=== PATIENT | male | born 1960 | race Caucasian/White ===

== ENCOUNTER 2022-09-07 17:13 | Observation (INO) ==
[2022-09-07] MEDS ORDERED: SODIUM CHLORIDE 0.9% 1000ML 1,000 ML IV SCH (17:45)
[2022-09-07 17:59] LABS: Basophils # (auto) 0.03 K/uL (0-0.2); Basophils % (auto) 0.4 %; Eosinophils # (auto) 0.01 K/uL (0-0.50); Eosinophils % (auto) 0.1 %; Hematocrit (blood only) 40.8 % (42.0-52.0); Hemoglobin 14.4 g/dl (14.0-18.0); Immature Granulocytes # (auto) 0.02 K/uL (0.01-0.20); Immature Granulocytes % (auto) 0.2 %; Lymphocytes # (auto) 0.72 K/uL (1.2-3.4); Lymphocytes % (auto) 8.7 %; Mean Corpuscular Hemoglobin 31.8 pg (25.0-34.0); Mean Corpuscular Hgb Conc 35.3 g/dL (32.0-36.0); Mean Corpuscular Volume 90.1 fL (80.0-100.0); Monocytes # (auto) 0.72 K/uL (0.11-0.59); Monocytes % (auto) 8.7 %; Neutrophils # (auto) 6.78 K/uL (1.40-6.50); Neutrophils % (auto) 81.9 %; Platelet Count 218 K/uL (130-400); RDW Coefficient of Variation 12.7 % (11.5-14.5); RDW Standard Deviation 42.3 fL (36.4-46.3); Red Blood Count 4.53 M/uL (4.70-6.10); White Blood Count 8.28 K/ul (4.8-10.8)
[2022-09-07 18:15] LABS: Albumin Globulin Ratio 1.5 (0.9-2); Albumin Level 4.4 gm/dl (3.4-5.0); BUN Creatinine Ratio 18.7 (10-20); Bilirubin,Total 0.7 mg/dl (0.2-1.0); Calcium 9.3 mg/dl (8.6-10.3); Creatinine Clr Calc Pharmacy 96.3 ml/min; Est GFR (African American) 115.6 ml/min; Est GFR (Non-African American) 99.7 ml/min; Globulin 2.9 gm/dl (2.5-4.0); Magnesium 1.8 mg/dl (1.7-2.4); Potassium 3.5 mmol/L (3.5-5.1); Total Protein 7.3 gm/dl (6.0-8.3)
[2022-09-07 18:17] LABS: Appearance Urine Clear (Clear); Bacteria Urine Automated Negative (Negative); Bilirubin Urine Negative (Negative); Blood Urine Trace (Negative); Color Urine Yellow; Glucose Urine UA Negative (Negative); Ketones Urine 1+ (Negative); Leukocyte Esterase Urine Negative (Negative); Nitrite Urine Negative (Negative); Protein Urine 1+ (Negative); RBC Urine Automated 0-4 /hpf (0-4); Specific Gravity Urine 1.022 (1.000-1.030); Urobilinogen Urine Negative (Negative); pH Urine 5.5 (4.5-7.5)
--- NOTE | 2022-09-07 18:20 | CT Scan Report ---
CT head/brain wo con CLINICAL HISTORY: head injury, seizure Technique: Contiguous axial CT images of the head were acquired from the base of the skull to the derian rodger without intravenous contrast administration. Images were viewed in brain, subdural and bone [facility] ws. Automated dose lowering techniques and/or adjustment according to patient size were utilized for this exam. Comparison: None available at the time of this dictation. Findings: The ventricles, basal cisterns, and cerebral sulci are normal. There is no acute intracranial hemorrh age or evidence of acute territorial infarction. Neither mass effect, shift of the midline structures , nor abnormal extra-axial fluid collections are shown. Imaged portions of the paranasal sinuses and mastoid air cells are clear. The orbits appear normal. There are no acute fractures of the calvaria or scalp swelling. Impression: No acute intracranial hemorrhage, no evidence of acute territorial infarction or other acute intracra nial disease process. ACT 112: Negative or not required by law. Electronically signed by: Raza Haskins M.D. 09/07/2022 6:19 PM
--- NOTE | 2022-09-07 18:32 | CT Scan Report ---
CT cervical spine wo con CLINICAL HISTORY: head injury, seizure TECHNIQUE: Multidetector row helical CT of the cervical spine was performed without administration of intravenous contrast. Coronal and sagittal reformations were obtained. Automated dose lowering techn iques and/or adjustment according to patient size were utilized for this exam. Comparison: None available at the time of this dictation. FINDINGS: No acute fractures or subluxations are identified. Degenerative changes are seen in the visualized sp ine. The alignment is normal. Soft tissues are unremarkable. IMPRESSION: No evidence of acute bony injury. ACT 112: Negative or not required by law. Electronically signed by: Raza Haskins M.D. 09/07/2022 6:30 PM
--- NOTE | 2022-09-07 19:00 | Emergency Department Note ---
ED Provider Note History of Present Illness Chief Complaint: Seizure Stated Complaint: POSSIBLE SEIZURE, ABRASION SCALP Time Seen by Provider: 09/07/22 17:21 Source: patient and other (Boss- Geovanny) Mode of arrival: ambulatory Limitations: no limitations This patient is a 62-year-old male who presents to the emergency department for evaluation of a possible seizure versus syncopal episode. Additional history obtained from the patient's boss. Patient reports that he was at work and was walking into an outside warehouse. He states that the next thing he remembers, he was in the office talking to his boss and another coworker. His boss reports that the patient came to his office and seemed to be confused. He initially could not tell him what day it was and could not remember a coworker's name. He gradually became less disoriented. It was determined that there was about a 10 to 15-minute period of time that the patient could not remember. He has seth tressa on the back of his head and there is some blood in the warehouse that indicates that the patient fell from a standing position backward. Patient states that he felt normal throughout the day today. He did not have much to eat, only a bag of cheese its for lunch but he states this is normal for him. He drink a few cups of coffee in the morning and had been drinking water throughout the day. He denies any recent illness. He states that he drinks 3 beers per day. He uses chewing tobacco. He denies any drug use. Patient reports a remote history of tonic-clonic seizures. He states that he has had 3 or 4 seizures in his life and the last one was in 2005 or 2006. He does not take any medication for these. He states that he was on Dilantin for period of time but he stopped taking it against the advice of his neurologist since he had not had a seizure in some time. He does state that when he had seizures, he had an aura of feeling very shaky and knew he was going to have 1. He did not experience that today. Home Medications Medication Instructions Recorded Confirmed Type diclofenac sodium 1 % topical gel 2 g topical QID PRN pain, moderate 12/11/21 09/07/22 Rx #100 grams Allergies Allergy/AdvReac Type Severity Reaction Status Date / Time No Known Allergies Allergy Unknown Verified 09/07/22 19:03 Past Med/Surg History Surgical History S/P LASIK (laser assisted in situ keratomileusis) of both eyes Family History Grandfather (Paternal) Cancer Mother Heart disease Father Myocardial infarction S/P triple vessel bypass Other Gestational diabetes Denies family history of Ovarian cancer Prostate cancer Breast cancer Colorectal cancer Social History Smoking Status: Current every day smoker Tobacco Type: Smokeless Tobacco (Dip or Chew) Second Hand Exposure: No; Do You Dip or Chew Tobacco: Yes; Tobacco Cessation Education Requested by Patient: No Hx Alcohol Use: Yes Alcohol type: beer Alcohol Intake Frequency: 4 or More x per/Week Hx Substance Use: No Preferred Language: Iranian Communication Ability: Effective Visual Impairment: No Limitations Hearing Ability: Normal Telecommunicator Supervisor Required: No Beliefs That Will Affect Care: None marital status: Current Living Situation: Alone current occupational status: employed Other Information That Helps Us Care for You: No Feels Safe at Home: Yes Safety Concerns: Feels Safe At This Time Childhood Exposure to Second-Hand Smoke: Yes Diet: regular Diet Comment: regular Dental Care, Regularly: No Physical Activity Frequency: Does not Exercise Seatbelt Use: sometimes Sunscreen Use: Yes Assistive Devices: None Physical Exam Vital Signs Vital Signs - 24 hr 09/07/22 17:16 09/07/22 17:45 09/07/22 17:49 Temperature 36.6 C Temperature Source Temporal Artery Scan Pulse Rate 84 84 85 Pulse Rate from SpO2 Sensor Respiratory Rate 18 12 Respiratory Effort / Characteristics Respiratory Depth Respiratory Pattern Blood Pressure 166/91 H Blood Pressure Mean 116 Pulse Oximetry 99 98 Oxygen Delivery Method Room Air Sepsis Recent Fever Within 48 Hours No Sepsis New/Unexplained Change in Mental Status N/A Sepsis Action Taken by Nursing No Action Required 09/07/22 17:47 09/07/22 17:50 09/07/22 18:07 Temperature Temperature Source Pulse Rate 86 88 88 Pulse Rate from SpO2 Sensor 85 89 82 Respiratory Rate 14 22 Respiratory Effort / Characteristics Respiratory Depth Respiratory Pattern Blood Pressure Blood Pressure Mean Pulse Oximetry 98 99 99 Oxygen Delivery Method Sepsis Recent Fever Within 48 Hours Sepsis New/Unexplained Change in Mental Status Sepsis Action Taken by Nursing 09/07/22 18:08 09/07/22 18:08 09/07/22 18:10 Temperature Temperature Source Pulse Rate 93 H 87 Pulse Rate from SpO2 Sensor 93 H 89 Respiratory Rate 17 21 Respiratory Effort / Characteristics Respiratory Depth Respiratory Pattern Blood Pressure 170/102 H Blood Pressure Mean 124 Pulse Oximetry 99 98 Oxygen Delivery Method Sepsis Recent Fever Within 48 Hours Sepsis New/Unexplained Change in Mental Status Sepsis Action Taken by Nursing 09/07/22 18:20 09/07/22 18:30 09/07/22 18:30 Temperature Temperature Source Pulse Rate 85 86 Pulse Rate from SpO2 Sensor 86 86 Respiratory Rate 16 13 Respiratory Effort / Characteristics Respiratory Depth Respiratory Pattern Blood Pressure 163/94 H Blood Pressure Mean 117 Pulse Oximetry 99 99 Oxygen Delivery Method Sepsis Recent Fever Within 48 Hours Sepsis New/Unexplained Change in Mental Status Sepsis Action Taken by Nursing 09/07/22 18:40 09/07/22 18:50 09/07/22 19:00 Temperature Temperature Source Pulse Rate 85 88 Pulse Rate from SpO2 Sensor 86 88 Respiratory Rate 15 21 Respiratory Effort / Characteristics Respiratory Depth Respiratory Pattern Blood Pressure 161/96 H Blood Pressure Mean 117 Pulse Oximetry 100 99 Oxygen Delivery Method Sepsis Recent Fever Within 48 Hours Sepsis New/Unexplained Change in Mental Status Sepsis Action Taken by Nursing 09/07/22 19:00 09/07/22 19:10 09/07/22 19:56 Temperature Temperature Source Pulse Rate 85 84 Pulse Rate from SpO2 Sensor 85 84 Respiratory Rate 14 14 Respiratory Effort / Characteristics Non-Labored Spontaneous Respiratory Depth Normal Respiratory Pattern Regular Blood Pressure Blood Pressure Mean Pulse Oximetry 98 99 Oxygen Delivery Method Room Air Sepsis Recent Fever Within 48 Hours Sepsis New/Unexplained Change in Mental Status Sepsis Action Taken by Nursing 09/07/22 19:20 09/07/22 19:30 09/07/22 19:30 Temperature Temperature Source Pulse Rate 83 81 Pulse Rate from SpO2 Sensor 83 82 Respiratory Rate 13 17 Respiratory Effort / Characteristics Respiratory Depth Respiratory Pattern Blood Pressure 158/90 H Blood Pressure Mean 112 Pulse Oximetry 98 99 Oxygen Delivery Method Sepsis Recent Fever Within 48 Hours Sepsis New/Unexplained Change in Mental Status Sepsis Action Taken by Nursing 09/07/22 19:40 09/07/22 19:50 09/07/22 20:00 Temperature Temperature Source Pulse Rate 81 78 Pulse Rate from SpO2 Sensor 81 78 Respiratory Rate 15 14 Respiratory Effort / Characteristics Respiratory Depth Respiratory Pattern Blood Pressure 151/87 H Blood Pressure Mean 108 Pulse Oximetry 99 99 Oxygen Delivery Method Sepsis Recent Fever Within 48 Hours Sepsis New/Unexplained Change in Mental Status Sepsis Action Taken by Nursing 09/07/22 20:00 09/07/22 20:10 09/07/22 20:20 Temperature Temperature Source Pulse Rate 82 79 77 Pulse Rate from SpO2 Sensor 82 79 77 Respiratory Rate 20 15 15 Respiratory Effort / Characteristics Respiratory Depth Respiratory Pattern Blood Pressure Blood Pressure Mean Pulse Oximetry 99 99 99 Oxygen Delivery Method Sepsis Recent Fever Within 48 Hours Sepsis New/Unexplained Change in Mental Status Sepsis Action Taken by Nursing 09/07/22 20:30 09/07/22 20:30 09/07/22 20:40 Temperature Temperature Source Pulse Rate 78 77 Pulse Rate from SpO2 Sensor 79 77 Respiratory Rate 12 17 Respiratory Effort / Characteristics Respiratory Depth Respiratory Pattern Blood Pressure 160/96 H Blood Pressure Mean 117 Pulse Oximetry 97 97 Oxygen Delivery Method Sepsis Recent Fever Within 48 Hours Sepsis New/Unexplained Change in Mental Status Sepsis Action Taken by Nursing VITALS: Vitals are noted on the nurse's note and reviewed by myself. GENERAL: This is a 62-year-old male, in no acute distress, well-developed well- nourished. SKIN: 2 abrasions and hematomas noted to the posterior scalp. HEAD: Hematomas as above. Otherwise normocephalic atraumatic. EARS: External auditory canals clear, tympanic membranes pearly galdamez without erythema or effusion bilaterally. No hemotympanum. EYES: Pupils equal round and reactive to light and accommodation. Extraocular movements intact. MOUTH: Mucous membranes moist. NECK: Supple without nuchal rigidity. Cervical spine is nontender. HEART: Regular rate and rhythm without murmurs gallops or rubs. LUNGS: Clear to auscultation bilaterally without wheezes, rales or rhonchi. ABDOMEN: Positive bowel sounds x 4. Soft, nontender to palpation. MUSCULOSKELETAL: Full range of motion throughout. Strength 5/5 throughout. NEURO: Patient was alert and oriented to person place and time. No focal neurological deficits. Course Administered Medications Potassium Chloride/Sodium Chloride (Normal Saline W/20 Meq Kcl) 20 meq in 1,000 mls @ 80 mls/hr IV .[id number] NUBIA Stop: 09/08/22 10:01 Last Admin: 09/07/22 22:10 Dose: 80 mls/hr Documented By: CLARENCE Discontinued Medications Sodium Chloride (Nss 1000ml) 1,000 mls @ 999 mls/hr IV .[id number] NUBIA Stop: 09/07/22 18:45 Last Infusion: 09/07/22 20:26 Dose: 0 mls/hr Documented By: Admin: 09/07/22 17:47 Dose: 999 mls/hr Documented By: TEODORO Medical Decision Making Differential Diagnosis Epilepsy, infection, hypoglycemia, electrolyte abnormalities, cardiac sources, intracerebral event, trauma, toxicologic, neurologic, syncope, as well as other pathologies. Home Medications was personally reviewed by me Laboratory Data Attestation: I reviewed the patient's lab results. 09/07/22 17:44 09/07/22 17:44 Lab Results 09/07/22 09/07/22 09/07/22 Range/Units 17:44 17:44 17:44 WBC 8.28 (4.8-10.8) K/ul RBC 4.53 L (4.70-6.10) M/uL Hgb 14.4 (14.0-18.0) g/dl Hct 40.8 L (42.0-52.0) % MCV 90.1 (80.0-100.0) fL MCH 31.8 (25.0-34.0) pg MCHC 35.3 (32.0-36.0) g/dL RDW Std Deviation 42.3 (36.4-46.3) fL RDW Coeff of Romeo 12.7 (11.5-14.5) % Plt Count 218 (130-400) K/uL MPV 10.0 (9.4-12.4) fL Immature Gran % (Auto) 0.2 % Neut % (Auto) 81.9 % Lymph % (Auto) 8.7 % [place] % (Auto) 8.7 % Eos % (Auto) 0.1 % Baso % (Auto) 0.4 % Neut # (Auto) 6.78 H (1.40-6.50) K/uL Lymph # (Auto) 0.72 L (1.2-3.4) K/uL [place] # (Auto) 0.72 H (0.11-0.59) K/uL Eos # (Auto) 0.01 (0-0.50) K/uL Baso # (Auto) 0.03 (0-0.2) K/uL Immature Gran # (Auto) 0.02 (0.01-0.20) K/uL Sodium 135 L (136-145) mmol/L Potassium 3.5 (3.5-5.1) mmol/L Chloride 98 (98-107) mmol/L Carbon Dioxide 27 (21-32) mmol/L Anion Gap 10 (3-11) BUN 14 (6-23) mg/dl Creatinine 0.75 (0.6-1.4) mg/dl Est Cr Clr Drug Dosing 96.3 ml/min Est GFR ( Amer) 115.6 ml/min Est GFR (Non-Af Amer) 99.7 ml/min BUN/Creatinine Ratio 18.7 (10-20) Glucose 90 (70-99(Fasting)) mg/dl Calcium 9.3 (8.6-10.3) mg/dl Magnesium 1.8 (1.7-2.4) mg/dl Total Bilirubin 0.7 (0.2-1.0) mg/dl AST 40 H (13-39) U/L ALT 27 (7-52) U/L Alkaline Phosphatase 53 (34-104) U/L Troponin I High Sens 40.0 H (0-20) pg/ml Total Protein 7.3 (6.0-8.3) gm/dl Albumin 4.4 (3.4-5.0) gm/dl Globulin 2.9 (2.5-4.0) gm/dl Albumin/Globulin Ratio 1.5 (0.9-2) Urine Color Urine Appearance (Clear) Urine pH (4.5-7.5) Ur Specific [place] (1.000-1.030) Urine Protein (Negative) Urine Glucose (UA) (Negative) Urine Ketones (Negative) Urine Blood (Negative) Urine Nitrite (Negative) Urine Bilirubin (Negative) Urine Urobilinogen (Negative) Ur Leukocyte Esterase (Negative) Urine WBC (Auto) (0-5) /hpf Urine RBC (Auto) (0-4) /hpf U Hyaline Cast (Auto) (0-5) /lpf U Epithel Cells (Auto) (0-5) /lpf Urine Bacteria (Auto) (Negative) Ethyl Alcohol mg/dL < 10.0 (<10.0) mg/dl SARS-CoV-2, RNA, NAAT (NEGATIVE) 05/09/23 05/09/23 Range/Units 17:50 19:20 WBC (4.8-10.8) K/ul RBC (4.70-6.10) M/uL Hgb (14.0-18.0) g/dl Hct (42.0-52.0) % MCV (80.0-100.0) fL MCH (25.0-34.0) pg MCHC (32.0-36.0) g/dL RDW Std Deviation (36.4-46.3) fL RDW Coeff of Romeo (11.5-14.5) % Plt Count (130-400) K/uL MPV (9.4-12.4) fL Immature Gran % (Auto) % Neut % (Auto) % Lymph % (Auto) % [place] % (Auto) % Eos % (Auto) % Baso % (Auto) % Neut # (Auto) (1.40-6.50) K/uL Lymph # (Auto) (1.2-3.4) K/uL [place] # (Auto) (0.11-0.59) K/uL Eos # (Auto) (0-0.50) K/uL Baso # (Auto) (0-0.2) K/uL Immature Gran # (Auto) (0.01-0.20) K/uL Sodium (136-145) mmol/L Potassium (3.5-5.1) mmol/L Chloride (98-107) mmol/L Carbon Dioxide (21-32) mmol/L Anion Gap (3-11) BUN (6-23) mg/dl Creatinine (0.6-1.4) mg/dl Est Cr Clr Drug Dosing ml/min Est GFR ( Amer) ml/min Est GFR (Non-Af Amer) ml/min BUN/Creatinine Ratio (10-20) Glucose (70-99(Fasting)) mg/dl Calcium (8.6-10.3) mg/dl Magnesium (1.7-2.4) mg/dl Total Bilirubin (0.2-1.0) mg/dl AST (13-39) U/L ALT (7-52) U/L Alkaline Phosphatase (34-104) U/L Troponin I High Sens (0-20) pg/ml Total Protein (6.0-8.3) gm/dl Albumin (3.4-5.0) gm/dl Globulin (2.5-4.0) gm/dl Albumin/Globulin Ratio (0.9-2) Urine Color Yellow Urine Appearance Clear (Clear) Urine pH 5.5 (4.5-7.5) Ur Specific [place] 1.022 (1.000-1.030) Urine Protein 1+ H (Negative) Urine Glucose (UA) Negative (Negative) Urine Ketones 1+ H (Negative) Urine Blood Trace H (Negative) Urine Nitrite Negative (Negative) Urine Bilirubin Negative (Negative) Urine Urobilinogen Negative (Negative) Ur Leukocyte Esterase Negative (Negative) Urine WBC (Auto) 1-5 (0-5) /hpf Urine RBC (Auto) 0-4 (0-4) /hpf U Hyaline Cast (Auto) 1-5 (0-5) /lpf U Epithel Cells (Auto) 5-10 H (0-5) /lpf Urine Bacteria (Auto) Negative (Negative) Ethyl Alcohol mg/dL (<10.0) mg/dl SARS-CoV-2, RNA, NAAT NEGATIVE (NEGATIVE) Imaging Data Attestation: I personally reviewed and interpreted this imaging study as follows: Radiologist's Impression: Cervical Spine CT 09/07/22 17:40 CT cervical spine wo con CLINICAL HISTORY: head injury, seizure TECHNIQUE: Multidetector row helical CT of the cervical spine was performed without administration of intravenous contrast. Coronal and sagittal reformations were obtained. Automated dose lowering techniques and/or adjustment according to patient size were utilized for this exam. Comparison: None available at the time of this dictation. FINDINGS: No acute fractures or subluxations are identified. Degenerative changes are seen in the visualized spine. The alignment is normal. Soft tissues are unremarkable. IMPRESSION: No evidence of acute bony injury. ACT 112: Negative or not required by law. Electronically signed by: Raza Haskins M.D. 09/07/2022 6:[address] 09/07/22 17:40 CT head/brain wo con CLINICAL HISTORY: head injury, seizure Technique: Contiguous axial CT images of the head were acquired from the base of the skull to the vertex without intravenous contrast administration. Images were viewed in brain, subdural and bone windows. Automated dose lowering techniques and/or adjustment according to patient size were utilized for this exam. Comparison: None available at the time of this dictation. Findings: The ventricles, basal cisterns, and cerebral sulci are normal. There is no acute intracranial hemorrhage or evidence of acute territorial infarction. Neither mas s effect, shift of the midline structures, nor abnormal extra-axial fluid collections are shown. Imaged portions of the paranasal sinuses and mastoid air cells are clear. The orbits appear normal. There are no acute fractures of the calvaria or scalp swelling. Impression: No acute intracranial hemorrhage, no evidence of acute territorial infarction or other acute intracranial disease process. ACT 112: Negative or not required by law. Electronically signed by: Raza Haskins M.D. 09/07/2022 6:19 PM ECG Data Attestation: I personally reviewed and interpreted this ECG as follows: Indication: + syncope Rate (beats per minute): 85 Rhythm: + normal sinus ECG Intervals/blocks: + Normal QRS ECG ST segments: + Normal ST segments Change: no significant change MDM Narrative Continuous ekg monitor: Order was placed for continuous ekg monitor. Patient was placed on the ekg monitor. Patient was noted to be in normal sinus rhythm at an initial rate of 80 bpm. The patient is a 62-year-old male who presents today for evaluation of a possible seizure versus syncopal episode. Based on the history it is unclear whether the patient truly had a seizure or had a possible syncopal episode. He did sustain head injury. CT of the head was unremarkable. Patient found to have a mildly elevated troponin of 40. His labs were otherwise unremarkable. No seizure activity here. EKG without ischemic changes. Given the elevation of troponin and possible syncopal episode/cardiac event, I recommended admission and patient was agreeable to this. [facility] patient for further care. Impression Episode of syncope, Elevated troponin, Closed head injury Discharge Plan Visit Data Chief Complaint: Seizure Stated Complaint: POSSIBLE SEIZURE, ABRASION SCALP ED Provider: Ramone Hernandez ED Midlevel Provider: Riri Wheeler Discharge Problem: Episode of syncope, Elevated troponin, Closed head injury Patient Disposition: Admitted As Inpatient Discharge Instructions Interventions: ED Discharge Assessment Last Done: 09/07/22 21:18
--- NOTE | 2022-09-07 20:49 | History & Physical Report ---
Date of Service September 07, 2022 Assessment & Plan (1) Episode of syncope: (2) Elevated troponin: (3) Closed head injury: Plan Syncopal episode/closed head injury- CT head and CT cervical spine negative The patient will be admitted to telemetry for serial cardiac enzymes, serial EKG's, cardiac rhythm monitoring and a 2-D echocardiogram with Dopplers. Order EEG Unable to order MRI of brain due to metallic foreign body in left arm, which was verified on x-ray today Differential is more likely that of a seizure as opposed to a CVA/TIA Consult neurology Elevated troponin- The patient will be admitted to telemetry for serial cardiac enzymes, serial EKG's, cardiac rhythm monitoring and a 2-D echocardiogram with Dopplers. Troponin 40.0 on admission EKG without acute findings Likely type II CA, supply/demand mismatch Check a fasting lipid panel and hemoglobin A1c Electrolyte disturbances/mild dehydration- Placed on NSS + KCl 20 mEq at 80 mils per hour x1 L, after having received 1 L normal saline in ED Repeat laboratories in a.m. Alcohol use history- Alcohol level less than 10 on admission If he stays in hospital for longer than 48 hours, may need to consider AWSS protocol Chewing tobacco- Cessation counseling History of Present Illness Chief Complaint: The patient presents to the emergency department after an episode where he unbeknownst to him had injured his head from a fall, noted while he was talking to his boss at work. Primary Care Provider: Hayder Espino DO The patient is a 62-year-old male with a past medical history including seizure disorder, who presents to the emergency department for evaluation of an episode that occurred earlier in the day that was found while he was talking to his boss. It was felt that he had about a 10 to 15-minute period of time where he does not remember what happened. 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 As noted, he does not remember any of these events. His boss notes that he was appearing confused during the conversation, and it was recommended that the patient come to the emergency department for assessment. The patient denies any recent travels or sick exposures. He does average 3 beers daily, and also chews tobacco. He denies any drug use Allergies Allergy/AdvReac Type Severity Reaction Status Date / Time No Known Allergies Allergy Unknown Verified 09/07/22 19:03 Home Medications Medication Instructions Recorded Confirmed Type diclofenac sodium 1 % topical gel 2 g topical QID PRN pain, moderate 12/11/21 09/07/22 Rx #100 grams Past Med/Surg History Surgical History S/P LASIK (laser assisted in situ keratomileusis) of both eyes Family History Grandfather (Paternal) Cancer Mother Heart disease Father Myocardial infarction S/P triple vessel bypass Other Gestational diabetes Denies family history of Ovarian cancer Prostate cancer Breast cancer Colorectal cancer Social History Smoking Status: Current every day smoker Tobacco Type: Smokeless Tobacco (Dip or Chew) Second Hand Exposure: No; Do You Dip or Chew Tobacco: Yes; Tobacco Cessation Education Requested by Patient: No Hx Alcohol Use: Yes Alcohol type: beer Alcohol Intake Frequency: 4 or More x per/Week Hx Substance Use: No Preferred Language: Ivorian Communication Ability: Effective Visual Impairment: No Limitations Hearing Ability: Normal Television Host Required: No Beliefs That Will Affect Care: None marital status: Current Living Situation: Alone current occupational status: employed Other Information That Helps Us Care for You: No Feels Safe at Home: Yes Safety Concerns: Feels Safe At This Time Childhood Exposure to Second-Hand Smoke: Yes Diet: regular Diet Comment: regular Dental Care, Regularly: No Physical Activity Frequency: Does not Exercise Seatbelt Use: sometimes Sunscreen Use: Yes Assistive Devices: None Review of Systems Review of Systems: The patient denies chest pain, palpitations, shortness of breath, dyspnea on exertion, cough, lower extremity swelling, sore throat, fevers, chills, sweats, nausea, vomiting, diarrhea , constipation, abdominal pain, pelvic pain, blood in urine or stool, dysuria, urinary frequency or urgency, imbalance, focal or generalized weakness, numbness or tingling in arms or legs, generalized arthralgias or myalgias, back or neck pain, or night sweats. The review of systems is otherwise negative other than for that already noted above, and at least 10 systems have been reviewed. Physical Exam Physical Exam: The patient is awake, alert and oriented 3, well developed and well nourished, hematoma noted on back of scalp, otherwise lying in bed and in no acute distress. HEENT--PERRL, EOMI, mucous membranes and oropharynx dry. Neck--supple. No JVD. No bruits. Thyroid normal, trachea midline, no adenopathy. Heart--normal S1 and S2. No murmurs, rubs or gallops. Lungs--clear bilaterally, no respiratory distress, no accessory muscle use. Abdomen--normal bowel sounds and soft. Nontender. Nondistended, no hernias or masses, no organomegaly. Extremities--no cyanosis or clubbing. No edema. There are good distal pulses b/l. Dermatologic--normal skin turgor, normal color, no abnormal lymph nodes, no rash. Neurologic--cranial nerves II through XII grossly intact. Rheumatologic--normal range of motion. Psychiatric--normal affect. Results & Data Results & Data Vital Signs (Past 12 Hours) Vital Signs Temp Pulse Resp BP Pulse Ox O2 Del Method 09/07/22 20:40 77 17 97 09/07/22 20:30 78 12 97 09/07/22 20:30 160/96 H 09/07/22 20:20 77 15 99 09/07/22 20:10 79 15 99 09/07/22 20:00 82 20 99 09/07/22 20:00 151/87 H 09/07/22 19:50 78 14 99 09/07/22 19:40 81 15 99 09/07/22 19:30 81 17 99 09/07/22 19:30 158/90 H 09/07/22 19:20 83 13 98 09/07/22 19:56 Room Air 09/07/22 19:10 84 14 99 09/07/22 19:00 85 14 98 09/07/22 19:00 161/96 H 09/07/22 18:50 88 21 99 09/07/22 18:40 85 15 100 09/07/22 18:30 86 13 99 09/07/22 18:30 163/94 H 09/07/22 18:20 85 16 99 09/07/22 18:10 87 21 98 09/07/22 18:08 93 H 17 99 09/07/22 18:08 170/102 H 09/07/22 18:07 88 99 09/07/22 17:50 88 22 99 09/07/22 17:47 86 14 98 09/07/22 17:49 85 09/07/22 17:45 84 12 98 Room Air 09/07/22 17:16 36.6 C 84 18 166/91 H 99 Laboratory Results Laboratory Results WBC 8.28 K/ul (4.8-10.8) 09/07/22 17:44 RBC 4.53 M/uL (4.70-6.10) L 09/07/22 17:44 Hgb 14.4 g/dl (14.0-18.0) 09/07/22 17:44 Hct 40.8 % (42.0-52.0) L 09/07/22 17:44 MCV 90.1 fL (80.0-100.0) 09/07/22 17:44 MCH 31.8 pg (25.0-34.0) 09/07/22 17:44 MCHC 35.3 g/dL (32.0-36.0) 09/07/22 17:44 RDW Std Deviation 42.3 fL (36.4-46.3) 09/07/22 17:44 RDW Coeff of Romeo 12.7 % (11.5-14.5) 09/07/22 17:44 Plt Count 218 K/uL (130-400) 09/07/22 17:44 MPV 10.0 fL (9.4-12.4) 09/07/22 17:44 Immature Gran % (Auto) 0.2 % 09/07/22 17:44 Neut % (Auto) 81.9 % 09/07/22 17:44 Lymph % (Auto) 8.7 % 09/07/22 17:44 Drew % (Auto) 8.7 % 09/07/22 17:44 Eos % (Auto) 0.1 % 09/07/22 17:44 Baso % (Auto) 0.4 % 09/07/22 17:44 Neut # (Auto) 6.78 K/uL (1.40-6.50) H 09/07/22 17:44 Lymph # (Auto) 0.72 K/uL (1.2-3.4) L 09/07/22 17:44 Drew # (Auto) 0.72 K/uL (0.11-0.59) H 09/07/22 17:44 Eos # (Auto) 0.01 K/uL (0-0.50) 09/07/22 17:44 Baso # (Auto) 0.03 K/uL (0-0.2) 09/07/22 17:44 Immature Gran # (Auto) 0.02 K/uL (0.01-0.20) 09/07/22 17:44 Sodium 135 mmol/L (136-145) L 09/07/22 17:44 Potassium 3.5 mmol/L (3.5-5.1) 09/07/22 17:44 Chloride 98 mmol/L (98-107) 09/07/22 17:44 Carbon Dioxide 27 mmol/L (21-32) 09/07/22 17:44 Anion Gap 10 (3-11) 09/07/22 17:44 BUN 14 mg/dl (6-23) 09/07/22 17:44 Creatinine 0.75 mg/dl (0.6-1.4) 09/07/22 17:44 Est Cr Clr Drug Dosing 96.3 ml/min 09/07/22 17:44 Est GFR ( Amer) 115.6 ml/min 09/07/22 17:44 Est GFR (Non-Af Amer) 99.7 ml/min 09/07/22 17:44 BUN/Creatinine Ratio 18.7 (10-20) 09/07/22 17:44 Glucose 90 mg/dl (70-99(Fasting)) 09/07/22 17:44 Calcium 9.3 mg/dl (8.6-10.3) 09/07/22 17:44 Magnesium 1.8 mg/dl (1.7-2.4) 09/07/22 17:44 Total Bilirubin 0.7 mg/dl (0.2-1.0) 09/07/22 17:44 AST 40 U/L (13-39) H 09/07/22 17:44 ALT 27 U/L (7-52) 09/07/22 17:44 Alkaline Phosphatase 53 U/L (34-104) 09/07/22 17:44 Troponin I High Sens 47.8 pg/ml (0-20) H 09/07/22 22:32 Total Protein 7.3 gm/dl (6.0-8.3) 09/07/22 17:44 Albumin 4.4 gm/dl (3.4-5.0) 09/07/22 17:44 Globulin 2.9 gm/dl (2.5-4.0) 09/07/22 17:44 Albumin/Globulin Ratio 1.5 (0.9-2) 09/07/22 17:44 Urine Color Yellow 09/07/22 17:50 Urine Appearance Clear (Clear) 09/07/22 17:50 Urine pH 5.5 (4.5-7.5) 09/07/22 17:50 Ur Specific Nelson 1.022 (1.000-1.030) 09/07/22 17:50 Urine Protein 1+ (Negative) H 09/07/22 17:50 Urine Glucose (UA) Negative (Negative) 09/07/22 17:50 Urine Ketones 1+ (Negative) H 09/07/22 17:50 Urine Blood Trace (Negative) H 09/07/22 17:50 Urine Nitrite Negative (Negative) 09/07/22 17:50 Urine Bilirubin Negative (Negative) 09/07/22 17:50 Urine Urobilinogen Negative (Negative) 09/07/22 17:50 Ur Leukocyte Esterase Negative (Negative) 09/07/22 17:50 Urine WBC (Auto) 1-5 /hpf (0-5) 09/07/22 17:50 Urine RBC (Auto) 0-4 /hpf (0-4) 09/07/22 17:50 U Hyaline Cast (Auto) 1-5 /lpf (0-5) 09/07/22 17:50 U Epithel Cells (Auto) 5-10 /lpf (0-5) H 09/07/22 17:50 Urine Bacteria (Auto) Negative (Negative) 09/07/22 17:50 Ethyl Alcohol mg/dL < 10.0 mg/dl (<10.0) 09/07/22 17:44 SARS-CoV-2, RNA, NAAT NEGATIVE (NEGATIVE) 09/07/22 19:[address] 09/07/22 17:40 CT cervical spine wo con CLINICAL HISTORY: head injury, seizure TECHNIQUE: Multidetector row helical CT of the cervical spine was performed without administration of intravenous contrast. Coronal and sagittal reformations were obtained. Automated dose lowering techniques and/or adjustment according to patient size were utilized for this exam. Comparison: None available at the time of this dictation. FINDINGS: No acute fractures or subluxations are identified. Degenerative changes are seen in the visualized spine. The alignment is normal. Soft tissues are unremarkable. IMPRESSION: No evidence of acute bony injury. ACT 112: Negative or not required by law. Electronically signed by: Raza Haskins M.D. 09/07/2022 6:[address] 09/07/22 17:40 CT head/brain wo con CLINICAL HISTORY: head injury, seizure Technique: Contiguous axial CT images of the head were acquired from the base of the skull to the vertex without intravenous contrast administration. Images were viewed in brain, subdural and bone windows. Automated dose lowering techniques and/or adjustment according to patient size were utilized for this exam. Comparison: None available at the time of this dictation. Findings: The ventricles, basal cisterns, and cerebral sulci are normal. There is no acute intracranial hemorrhage or evidence of acute territorial infarction. Neither mass effect, shift of the midline structures, nor abnormal extra-axial fluid collections are shown. Imaged portions of the paranasal sinuses and mastoid air cells are clear. The orbits appear normal. There are no acute fractures of the calvaria or scalp swelling. Impression: No acute intracranial hemorrhage, no evidence of acute territorial infarction or other acute intracranial disease process. ACT 112: Negative or not required by law. Electronically signed by: Raza Haskins M.D. 09/07/2022 6:19 PM Code Status & VTE Plan Code Status Full code VTE Prophylaxis Plan VTE Prophylaxis will be ordered: Yes PG Care Time/CCT Total # of Minutes Spent Total Time Spent with Patient: Total time spent is greater than 50% in coordination of care (as documented) at patient's floor/unit and/or counseling patient: Coding Level of Care Code 30321 INT INP/OBS CARE 3/75MIN Diagnoses Episode of syncope R55 Elevated troponin R77.8 Closed head injury S09.90XA
[2022-09-07] MEDS ORDERED: NSS + 20MEQ KCL 20 MEQ/1,000 ML BAG IV SCH (21:32)
[2022-09-07] MEDS ORDERED: ONDANSETRON INJ 2 MG/ML 2 ML VIAL IV PRN (21:32)
[2022-09-07] MEDS ORDERED: ACETAMINOPHEN 325 MG TAB PO PRN (21:32)
[2022-09-08 06:14] LABS: Basophils # (auto) 0.03 K/uL (0-0.2); Basophils % (auto) 0.5 %; Eosinophils # (auto) 0.15 K/uL (0-0.50); Eosinophils % (auto) 2.4 %; Hematocrit (blood only) 40.6 % (42.0-52.0); Immature Granulocytes # (auto) 0.03 K/uL (0.01-0.20); Immature Granulocytes % (auto) 0.5 %; Lymphocytes # (auto) 1.41 K/uL (1.2-3.4); Lymphocytes % (auto) 22.7 %; Mean Corpuscular Hemoglobin 31.7 pg (25.0-34.0); Mean Corpuscular Hgb Conc 34.5 g/dL (32.0-36.0); Mean Corpuscular Volume 92.1 fL (80.0-100.0); Mean Platelet Volume 10.2 fL (9.4-12.4); Monocytes # (auto) 0.71 K/uL (0.11-0.59); Monocytes % (auto) 11.4 %; Neutrophils # (auto) 3.88 K/uL (1.40-6.50); Neutrophils % (auto) 62.5 %; Platelet Count 209 K/uL (130-400); RDW Coefficient of Variation 12.7 % (11.5-14.5); Red Blood Count 4.41 M/uL (4.70-6.10); White Blood Count 6.21 K/ul (4.8-10.8)
[2022-09-08 06:29] LABS: Albumin Globulin Ratio 1.5 (0.9-2); Albumin Level 3.6 gm/dl (3.4-5.0); BUN Creatinine Ratio 15.2 (10-20); Bilirubin,Total 0.6 mg/dl (0.2-1.0); Calcium 8.4 mg/dl (8.6-10.3); Chol HDL Ratio 3.4 (0-5); Creatinine Clr Calc Pharmacy 92.4 ml/min; Est GFR (African American) 113.1 ml/min; Est GFR (Non-African American) 97.6 ml/min; Globulin 2.4 gm/dl (2.5-4.0); Potassium 3.8 mmol/L (3.5-5.1)
[2022-09-08 06:37] LABS: Troponin I High Sensitivity 24.5 pg/ml (0-20)
[2022-09-08 07:34] LABS: Estimated Average Glucose 105 mg/dl; Hemoglobin A1C 5.3 % (4.5-5.6)
--- NOTE | 2022-09-08 07:36 | XRay Report ---
LEFT HUMERUS 2 VIEWS CLINICAL HISTORY: MRI clearance. FINDINGS: AP and lateral views of the left humerus are obtained. Correlation is made with radiographs of the left forearm dated 08/28/2009. The skeletal structures are osteopenic. There is no radiographi c evidence of left humeral fracture. The shoulder and elbow joints appear maintained. A 12 mm metalli c foreign body is present within the soft tissues in the anterior aspect of the upper forearm. This i s unchanged from 08/28/2009. The overlying soft tissues are otherwise normal in appearance. Imaged lef t lung parenchyma appears clear. IMPRESSION: 1. The left humerus is normal in appearance. 2. A 12 mm metallic foreign body in the left proximal forearm is unchanged as compared to 2009. Electronically signed by: Baljit Sandoval M.D. 09/08/2022 7:35 AM
[2022-09-08] MEDS ORDERED: NSS + 20MEQ KCL 20 MEQ/1,000 ML BAG IV SCH (11:15)
--- NOTE | 2022-09-08 14:26 | XCELERA ---
[id number]
--- NOTE | 2022-09-08 15:12 | Electroencephalogram ---
EEG Procedure Note Date of Service September 08, 2022 Start / End Times Start Time: 06:25 End Time: 06:45 Referring Physician Micheal López MD History Syncope vs seizure. Home Medication List Medication Instructions Recorded Confirmed Type diclofenac sodium 1 % topical gel 2 g topical QID PRN pain, moderate 12/11/21 09/07/22 Rx #100 grams Inpatient Medication List Potassium Chloride/Sodium Chloride (Normal Saline W/20 Meq Kcl) 20 meq in 1,000 mls @ 125 mls/hr IV .Q8H NUBIA; Protocol Stop: 10/08/22 11:14 Last Admin: 09/08/22 11:35 Dose: 125 mls/hr Documented By: PATY Discontinued Medications Sodium Chloride (Nss 1000ml) 1,000 mls @ 999 mls/hr IV .Q1H1M NUBIA Stop: 09/07/22 18:45 Last Infusion: 09/07/22 20:26 Dose: 0 mls/hr Documented By: Admin: 09/07/22 17:47 Dose: 999 mls/hr Documented By: TEODORO Potassium Chloride/Sodium Chloride (Normal Saline W/20 Meq Kcl) 20 meq in 1,000 mls @ 125 mls/hr IV .Q8H NUBIA Stop: 09/08/22 09:40 Last Infusion: 09/08/22 11:16 Dose: 0 mls/hr Documented By: Infusion: 09/08/22 09:20 Dose: 125 mls/hr Documented By: Admin: 09/07/22 22:10 Dose: 80 mls/hr Documented By: CLARENCE Description This is a 21 electrode EEG with a single channel dedicated to limited EKG. The electrodes were placed in accordance with the International 10-20 system. Interpretation During restful wakefulness, there is 40 to 60 V, 10 Hz posterior activity, attenuates with eye opening bilaterally. Background activity shows good organization without focal slowing. Photic stimulations induce posterior driving responses bilaterally. Hyperventilation is not attempted. There is no sleep-related pattern. There are no electrographic seizures, epileptogenic discharges or asymmetries. Impression: This EEG, recorded in wakefulness only, is normal. There is no electrographic seizure or epileptogenic discharge. Clinical Correlation Normal routine EEG cannot rule out seizure disorders definitively. If clinically indicated, and long-term EEG monitoring might offer further information.
--- NOTE | 2022-09-08 15:42 | Neurology Consultation ---
Date of Consultation September 08, 2022 Assessment & Plan (1) Seizure disorder: Impression: The patient was found confused and he was amnestic of 15 minutes. There was a scalp hematoma and lip laceration. Even though he drinks few beers a day, but he denies any change of drinking scheduled. He does not remember feeling dizzy, lightheaded, and he was hydrating himself well. Above symptoms, postictal confusion, and prior history of recurrent seizures are highly suggestive of generalized seizure as a cause of the recent loss of consciousness. The patient used to be on Dilantin, and stopped using it on his own. His last seizure was in 2006. Recommendations: We will start patient on levetiracetam XR 1000 mg at bedtime. Seizure precautions are fully explained to patient. The patient should not drive motor vehicles for at least the next 6 months. Follow-up with neurology clinic in a month. I will contact with [facility] neurology to set up an appointment. The patient is neurologically stable and can be discharged home today. (2) Episode of syncope: Impression: As seen above. The likely cause of loss of consciousness was another generalized seizure. (3) Closed head injury: Impression: There was a scalp hematoma, probably secondary to closed head injury. Head CT was unremarkable. The patient is not a candidate for MRI, due to metal in extremity. Plan As seen above. Thank you for the consultation. History of Present Illness Reason for Consultation: Syncope vs seizure Requesting Physician: Gustavo Angel MD Attending Physician: Gustavo Angel MD History of Present Illness The patient is a 62-year-old gentleman, who brought to emergency department yesterday, when he was found confused. The patient reported that he was at work, and was walking the outside of the warehouse. The next thing he remembers that he was in the office talking to his boss with other coworker. He was not acting right and did not remember any events for about 10 to 15 minutes. They found that the patient was bleeding from scalp of posterior head. There was a blood on the floor in the warehouse. The patient does not remember feeling funny, dizzy, lightheaded, and he was not diaphoretic. There was a small laceration of his lip. There was no reported urinary incontinence or tongue biting. The patient reports drinking few beers a day, and denies any change of he is eating and drinking schedule. His serum alcohol level was lower than 10. Laboratory work-up showed minor electrolyte abnormalities and CK level was elevated. Increased troponin level was considered noncardiogenic. The patient was admitted to hospital for further evaluation. Telemetry monitoring has been showing no abnormality. Echocardiogram was unremarkable. Apparently, the patient has had 3 or 4 seizures in his life and the last one was in 2006. He was on phenytoin for a while, but had stopped using it against the advice of his neurologist. He has not had any seizures since then. I have reviewed the patient's chart including imaging studies and visualized them personally. I have discussed the case with the patient and answered his questions in detail. Allergies Allergy/AdvReac Type Severity Reaction Status Date / Time No Known Allergies Allergy Unknown Verified 09/07/22 19:03 Home Medications Medication Instructions Recorded Confirmed Type diclofenac sodium 1 % topical gel 2 g topical QID PRN pain, moderate 12/11/21 09/07/22 Rx #100 grams Patient History Surgical History S/P LASIK (laser assisted in situ keratomileusis) of both eyes Family History Grandfather (Paternal) Cancer Mother Heart disease Father Myocardial infarction S/P triple vessel bypass Other Gestational diabetes Denies family history of Ovarian cancer Prostate cancer Breast cancer Colorectal cancer Social History Smoking Status: Current every day smoker Tobacco Type: Smokeless Tobacco (Dip or Chew) Second Hand Exposure: No; Do You Dip or Chew Tobacco: Yes; Tobacco Cessation Education Requested by Patient: No Hx Alcohol Use: Yes Alcohol type: beer Alcohol Intake Frequency: 4 or More x per/Week Hx Substance Use: No Preferred Language: Danish Communication Ability: Effective Visual Impairment: No Limitations Hearing Ability: Normal Grant Specialist Required: No Beliefs That Will Affect Care: None marital status: Current Living Situation: Alone current occupational status: employed Other Information That Helps Us Care for You: No Feels Safe at Home: Yes Safety Concerns: Feels Safe At This Time Childhood Exposure to Second-Hand Smoke: Yes Diet: regular Diet Comment: regular Dental Care, Regularly: No Physical Activity Frequency: Does not Exercise Seatbelt Use: sometimes Sunscreen Use: Yes Assistive Devices: None Review of Systems Review of Systems: All systems reviewed & are unremarkable except as noted in HPI & below Physical Exam Physical Exam: General Examination: Constitutional: Well developed person in no acute distress. HENT: Normal exam with inspection except wollen posterior scalp and lower lip laceration. CV: Hearth rhythm is regular. Neck: Supple, no carotid bruits. Lungs: Non-labored and comfortable breathing. Abdomen: Soft, non-tender, non-distended. Skin: No rash or ecchymosis. Extremities: No edema or cyanosis NEUROLOGICAL EXAMINATION: Mental Status: Alert and oriented to place, person and time. Cranial Nerves: II-XII are intact. No nystagmus. Funduscopy: Normal looking optic discs. Motor: 5/5 in all extremities without asymmetry. Tone: Normal without spasticity or rigidity. Sensory: Intact to all sensory modalities. Coordination: No dysmetria with FTN testing. Speech: Fluent. Comprehension is intact. Gait: Normal. No ataxia or abnormal walking pattern. Musculoskeletal: Normal muscle bulk, no atrophy. Results & Data Vital Signs (Past 12 Hours) Vital Signs Temp Pulse Pulse Resp BP Pulse Ox O2 Del Method 09/08/22 15:27 36.8 C 72 20 147/82 H 99 Room Air 09/08/22 15:20 62 09/08/22 11:47 36.7 C 79 18 134/81 97 Room Air 09/08/22 08:15 60 Laboratory Results Laboratory Results - last 24 hr 09/07/22 09/07/22 09/07/22 17:44 17:44 17:44 WBC 8.28 RBC 4.53 L Hgb 14.4 Hct 40.8 L MCV 90.1 MCH 31.8 MCHC 35.3 RDW Std Deviation 42.3 RDW Coeff of Romeo 12.7 Plt Count 218 MPV 10.0 Immature Gran % (Auto) 0.2 Neut % (Auto) 81.9 Lymph % (Auto) 8.7 Dale % (Auto) 8.7 Eos % (Auto) 0.1 Baso % (Auto) 0.4 Neut # (Auto) 6.78 H Lymph # (Auto) 0.72 L Dale # (Auto) 0.72 H Eos # (Auto) 0.01 Baso # (Auto) 0.03 Immature Gran # (Auto) 0.02 Sodium 135 L Potassium 3.5 Chloride 98 Carbon Dioxide 27 Anion Gap 10 BUN 14 Creatinine 0.75 Est Cr Clr Drug Dosing 96.3 Est GFR ( Amer) 115.6 Est GFR (Non-Af Amer) 99.7 BUN/Creatinine Ratio 18.7 Glucose 90 Estimat Average Glucose Hemoglobin A1c Calcium 9.3 Magnesium 1.8 Total Bilirubin 0.7 AST 40 H ALT 27 Alkaline Phosphatase 53 Total Creatine Kinase Troponin I High Sens 40.0 H Total Protein 7.3 Albumin 4.4 Globulin 2.9 Albumin/Globulin Ratio 1.5 Triglycerides Cholesterol LDL Cholesterol, Calc VLDL Cholesterol, Calc HDL Cholesterol Cholesterol/HDL Ratio Urine Color Urine Appearance Urine pH Ur Specific [place] Urine Protein Urine Glucose (UA) Urine Ketones Urine Blood Urine Nitrite Urine Bilirubin Urine Urobilinogen Ur Leukocyte Esterase Urine WBC (Auto) Urine RBC (Auto) U Hyaline Cast (Auto) U Epithel Cells (Auto) Urine Bacteria (Auto) Ethyl Alcohol mg/dL < 10.0 SARS-CoV-2, RNA, NAAT 09/07/22 09/07/22 09/07/22 17:50 19:20 22:32 WBC RBC Hgb Hct MCV MCH MCHC RDW Std Deviation RDW Coeff of Romeo Plt Count MPV Immature Gran % (Auto) Neut % (Auto) Lymph % (Auto) Dale % (Auto) Eos % (Auto) Baso % (Auto) Neut # (Auto) Lymph # (Auto) Dale # (Auto) Eos # (Auto) Baso # (Auto) Immature Gran # (Auto) Sodium Potassium Chloride Carbon Dioxide Anion Gap BUN Creatinine Est Cr Clr Drug Dosing Est GFR ( Amer) Est GFR (Non-Af Amer) BUN/Creatinine Ratio Glucose Estimat Average Glucose Hemoglobin A1c Calcium Magnesium Total Bilirubin AST ALT Alkaline Phosphatase Total Creatine Kinase Troponin I High Sens 47.8 H Total Protein Albumin Globulin Albumin/Globulin Ratio Triglycerides Cholesterol LDL Cholesterol, Calc VLDL Cholesterol, Calc HDL Cholesterol Cholesterol/HDL Ratio Urine Color Yellow Urine Appearance Clear Urine pH 5.5 Ur Specific [place] 1.022 Urine Protein 1+ H Urine Glucose (UA) Negative Urine Ketones 1+ H Urine Blood Trace H Urine Nitrite Negative Urine Bilirubin Negative Urine Urobilinogen Negative Ur Leukocyte Esterase Negative Urine WBC (Auto) 1-5 Urine RBC (Auto) 0-4 U Hyaline Cast (Auto) 1-5 U Epithel Cells (Auto) 5-10 H Urine Bacteria (Auto) Negative Ethyl Alcohol mg/dL SARS-CoV-2, RNA, NAAT NEGATIVE 09/08/22 09/08/22 09/08/22 05:28 05:28 05:28 WBC 6.21 RBC 4.41 L Hgb 14.0 Hct 40.6 L MCV 92.1 MCH 31.7 MCHC 34.5 RDW Std Deviation 43.0 RDW Coeff of Romeo 12.7 Plt Count 209 MPV 10.2 Immature Gran % (Auto) 0.5 Neut % (Auto) 62.5 Lymph % (Auto) 22.7 Dale % (Auto) 11.4 Eos % (Auto) 2.4 Baso % (Auto) 0.5 Neut # (Auto) 3.88 Lymph # (Auto) 1.41 Dale # (Auto) 0.71 H Eos # (Auto) 0.15 Baso # (Auto) 0.03 Immature Gran # (Auto) 0.03 Sodium 138 Potassium 3.8 Chloride 105 Carbon Dioxide 29 Anion Gap 4 BUN 12 Creatinine 0.79 Est Cr Clr Drug Dosing 92.4 Est GFR ( Amer) 113.1 Est GFR (Non-Af Amer) 97.6 BUN/Creatinine Ratio 15.2 Glucose 90 Estimat Average Glucose 105 Hemoglobin A1c 5.3 Calcium 8.4 L Magnesium 2.0 Total Bilirubin 0.6 AST 47 H ALT 26 Alkaline Phosphatase 46 Total Creatine Kinase 1243 H Troponin I High Sens 24.5 H D Total Protein 6.0 Albumin 3.6 Globulin 2.4 L Albumin/Globulin Ratio 1.5 Triglycerides 116 Cholesterol 200 LDL Cholesterol, Calc 119 VLDL Cholesterol, Calc 23 HDL Cholesterol 58 Cholesterol/HDL Ratio 3.4 Urine Color Urine Appearance Urine pH Ur Specific [place] Urine Protein Urine Glucose (UA) Urine Ketones Urine Blood Urine Nitrite Urine Bilirubin Urine Urobilinogen Ur Leukocyte Esterase Urine WBC (Auto) Urine RBC (Auto) U Hyaline Cast (Auto) U Epithel Cells (Auto) Urine Bacteria (Auto) Ethyl Alcohol mg/dL SARS-CoV-2, RNA, NAAT Diagnostic Findings Cervical Spine CT 09/07/22 17:40 CT cervical spine wo con CLINICAL HISTORY: head injury, seizure TECHNIQUE: Multidetector row helical CT of the cervical spine was performed without administration of intravenous contrast. Coronal and sagittal reformations were obtained. Automated dose lowering techniques and/or adjustment according to patient size were utilized for this exam. Comparison: None available at the time of this dictation. FINDINGS: No acute fractures or subluxations are identified. Degenerative changes are seen in the visualized spine. The alignment is normal. Soft tissues are unremarkable. IMPRESSION: No evidence of acute bony injury. ACT 112: Negative or not required by law. Electronically signed by: Raza Haskins M.D. 09/07/2022 6:[address] 09/07/22 17:40 CT head/brain wo con CLINICAL HISTORY: head injury, seizure Technique: Contiguous axial CT images of the head were acquired from the base of the skull to the vertex without intravenous contrast administration. Images were viewed in brain, subdural and bone windows. Automated dose lowering techniques and/or adjustment according to patient size were utilized for this exam. Comparison: None available at the time of this dictation. Findings: The ventricles, basal cisterns, and cerebral sulci are normal. There is no acute intracranial hemorrhage or evidence of acute territorial infarction. Neither mass effect, shift of the midline structures, nor abnormal extra-axial fluid collections are shown. Imaged portions of the paranasal sinuses and mastoid air cells are clear. The orbits appear normal. There are no acute fractures of the calvaria or scalp swelling. Impression: No acute intracranial hemorrhage, no evidence of acute territorial infarction or other acute intracranial disease process. ACT 112: Negative or not required by law. Electronically signed by: Raza Haskins M.D. 09/07/2022 6:19 PM Humerus X-Ray 09/07/22 20:45 LEFT HUMERUS 2 VIEWS CLINICAL HISTORY: MRI clearance. FINDINGS: AP and lateral views of the left humerus are obtained. Correlation is made with radiographs of the left forearm dated 08/28/2009. The skeletal structures are osteopenic. There is no radiographic evidence of left humeral fracture. The shoulder and elbow joints appear maintained. A 12 mm metallic foreign body is present within the soft tissues in the anterior aspect of the upper forearm. This is unchanged from 08/28/2009. The overlying soft tissues are otherwise normal in appearance. Imaged left lung parenchyma appears clear. IMPRESSION: 1. The left humerus is normal in appearance. 2. A 12 mm metallic foreign body in the left proximal forearm is unchanged as compared to 2009. Electronically signed by: Baljit Sandoval M.D. 09/08/2022 7:35 AM EEG-- Unremarkable Medications Administered Reviewed
--- NOTE | 2022-09-08 18:48 | Discharge Summary ---
Date of Service September 08, 2022 Admission HPI Per Admitting Provider The patient is a 62-year-old male with a past medical history including seizure disorder, who presents to the emergency department for evaluation of an episode that occurred earlier in the day that was found while he was talking to his boss. It was felt that he had about a 10 to 15-minute period of time where he does not remember what happened. 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 As noted, he does not remember any of these events. His boss notes that he was appearing confused during the conversation, and it was recommended that the patient come to the emergency department for assessment. The patient denies any recent travels or sick exposures. He does average 3 beers daily, and also chews tobacco. He denies any drug use Discharge Data Allergies Allergy/AdvReac Type Severity Reaction Status Date / Time No Known Allergies Allergy Unknown Verified 09/07/22 19:03 Consultations 09/07/22 19:59 ED Decision to Admit Stat 09/07/22 21:32 Consult Neurology Routine Ordered Studies 09/07/22 17:40 CT cervical spine wo con Stat CT head/brain wo con Stat Discharge Plan Discharge Items Patient Disposition: Home - Self-Care Reason For Visit: Loss of consciousness, confusion Discharge Diagnosis: 1. suspected seizure 2. loss of consciousness - likely due to seizure 3. transient confusion - also likely due to seizure 4. head injury 5. rhabdomyolysis - muscle breakdown with release of byproducts into the bloodstream - due to the suspected seizure + fall - improving Activity: As commented below Activity Comment: take it easy for the next 2 days then gradually increase activities Driving/Machine Use: No driving a car or operating heavy machinery for 6 months Non-emergency contact: Primary Care Provider and Neurologist Call non-emergency contact if: you have any medication questions Follow-up/Referrals: Hayder Espino DO [Primary Care Provider] - (within 1 week ) Kaden Salter MD [Physician] - (1 month for seizure ) Diet: Regular Ambulatory Orders: Creatine Kinase (Routine) Timeframe: 3 Days Location: Determined by Patient Ordered By: Gustavo Wong Attending Provider Instructions: Akbar Kaur were admitted to the hospital due to an episode of loss of consciousness followed by mild, transient confusion. CT head did not show any bleeding in the brain, stroke, tumor or other abnormalities. An EEG was performed to look at your brain wave activity and this returned normal. However, having a normal EEG does not exclude the presence of seizures. You were seen by Dr Kaden Salter, [facility]. He felt that your episode was likely due to a seizure - especially in light of your previous seizures over the years. Dr Salter recommended the initiation of anti-seizure medication. Recommendations - 1. Keppra XR (levetiracetam XR) - 1000mg by mouth at bedtime, first dose tonight upon return home. Most common side effect is mild sedation from the medication. 2. NO DRIVING a car or operating heavy machinery for 6 months. 3. Do not swim in a pool, aggarwal, etc alone - always have someone with you. 4. Do not take tub baths; best to take showers. 5. Avoid all forms of alcohol if at all possible. Please know that there are several things that can "trigger" or increase the chances of having seizures. The following are some of those triggers - * sleep deprivation * alcohol usage * emotional and physical stress * infections/fever * various medications such as anti-histamines (benadryl), wellbutrin (an antidepressant), certain IV antibiotics, etc * missing your anti-seizure medication In addition to the suspected seizure you had a mild case of rhabdomyolysis. This is a temporary condition in which the muscles of your body get hurt due to a fall, seizure, etc. When there is muscle damage various breakdown products enter the bloodstream. This causes a lab test called "CK" (creatine kinase) to rise. The treatment of rhabdomyolysis is hydration. For the next 3 days please - * focus on very good hydration - plenty of water and/or gatorade; drink AT LEAST 2 liters of fluid each day * avoid excessive exertional activity * do not go for long walks, to the gym, a bike ride, etc. Follow-up - see separate section Other recommendations - please have a repeat blood test for the "CK" level either on Tuesday, 09/11 - or Tuesday, 09/13. This will ensure the level has normalized. Return to [facility] if - * you have any episodes of passing out/losing consciousness * you have any concern for recurrent seizures * you develop fevers over 100 degrees * any other concerns Best wishes, Dr Angel Pending Studies at Discharge: No Stand-Alone Forms: [facility], Smoking Cessation Medications and DC Order Prescriptions: New levetiracetam [Keppra XR] 500 mg tablet extended release 24 hr 1,000 mg PO HS Qty: 60 2RF Continued diclofenac sodium 1 % gel 2 g topical QID PRN (Reason: pain, moderate) Qty: 100 2RF Rx Instructions: apply to both shoulders. Discharge Orders: Discharge Order (Routine); Ordered 09/08/22 Ordered By: Gustavo Baker/Other Patient Handouts: ED Seizure, Recurrent (Adult) Admission Data Admit Date/Time: 09/07/22 20:47 Attending Provider: Gustavo Angel Admit Provider: Micheal López Primary Care Provider: Hayder Espino Other Providers: Micheal López ; Kaden Salter Coding Diagnoses
--- NOTE | 2022-09-08 23:16 | Electrocardiogram Report ---
Test Reason : Blood Pressure : / mmHG Vent. Rate : 085 BPM Atrial Rate : 085 BPM P-R Int : 158 ms QRS Dur : 094 ms QT Int : 360 ms P-R-T Axes : 037 -25 062 degrees QTc Int : 428 ms Normal sinus rhythm Septal infarct , age undetermined Abnormal ECG When compared with ECG of 23-AUG-2000 11:48, Septal infarct is now Present Confirmed by Tung Bass ([id number]) on 09/08/2022 11:15:29 PM Referred By: REFERRED SELF Confirmed By:Tung Bass
== END 2022-09-08 19:24 | disposition home or self-care (01) ==
LOC: 2E 17:13 → ED 17:13 → SUATTDRO 20:47 → 2E 21:18